=== PATIENT | female | born 1995 | race Caucasian/White ===

== ENCOUNTER 2024-02-24 20:24 | Emergency (ER) | payer SELFPAY ==
[2024-02-24 20:34] VITALS: BMI 23.0
[2024-02-25 01:08] VITALS: BP 83/50; PULSE 82; RESP 20; TEMP 98.3
[2024-02-25] MEDS: LACTATED RINGERS SOLUTION 1000 ML INFUS.BAG IV ONE (01:38)
== END 2024-02-25 01:41 | disposition left against medical advice (07) ==
LOC: JER 20:24
DX: F10.129 Alcohol abuse with intoxication, unspecified (principal); Y90.9 Presence of alcohol in blood, level not specified
CPT/HCPCS: 93005; 93010; 99283-25